=== PATIENT | male | born 1990 | race Caucasian/White ===

== ENCOUNTER 2017-12-22 13:28 | Emergency (ER) | payer SELFPAY ==
[~2017-12-22] VITALS: Ht 175.3 cm; Wt 90.9 kg
[2017-12-22 13:30] VITALS: BP 140/85
== END 2017-12-22 15:20 | disposition left against medical advice (07) ==
LOC: EMS 13:30
DX: J11.1 Influenza due to unidentified influenza virus with other respiratory manifestations (principal); Z53.21 Procedure and treatment not carried out due to patient leaving prior to being seen by health care provider